=== PATIENT | male | born 1940 | race Caucasian/White ===

== ENCOUNTER 2020-02-27 05:38 | Emergency (ER) | payer OTHER ==
[~2020-02-27] VITALS: Ht 167.6 cm; Wt 104.3 kg
[2020-02-27] MEDS ORDERED: FLOMAX0.4 MG PO (06:11)
[2020-02-27] MEDS ORDERED: LASIX20 MG PO (06:12)
[2020-02-27] MEDS ORDERED: METOPROLOL ER-1 EAC2 PO (06:15)
[2020-02-27] MEDS ORDERED: ALTOPREV40 M2 PO (06:19)
[2020-02-27] MEDS ORDERED: APAP325 MG PO (06:21)
[2020-02-27 07:34] LABS: CALCIUM 8.6 mg/dL (8.5-10.1); CARBON DIOXIDE 22.9 mmol/L (21-32); CHLORIDE SERUM 104 mmol/L (98-107); CREATININE SERUM 0.9 mg/dL (0.7-1.3); GLUCOSE SERUM 99 mg/dL (74-106); POTASSIUM SERUM 3.7 mmol/L (3.5-5.1); SODIUM SERUM 139 mmol/L (136-145)
[2020-02-27 07:37] LABS: BASOPHIL % 0.1 % (0-2); PLATELET COUNT 149 x10^3mcL (130-400)
[2020-02-27 07:38] LABS: ALBUMIN 3.4 g/dL (3.4-5.0); ALKALINE PHOSPHATASE 59 U/L (46-116); ALT/SGPT 19 U/L (16-63); AST/SGOT 22 U/L (15-37); BILIRUBIN TOTAL 1.8 mg/dL (0.20-1.00); TOTAL PROTEIN, SERUM 6.2 g/dL (6.4-8.2)
[2020-02-27 07:39] LABS: RED CELL DISTRIBUTION WIDTH 15.4 % (11.5-14.5)
[2020-02-27 09:13] LABS: UA SPECIFIC GRAVITY 1.025 (1.005-1.035); microscopic required? YES; urine erythrocyte 1+ (NEGATIVE)
[2020-02-27 10:00] VITALS: BP 182/72
== END 2020-02-27 10:00 | disposition home or self-care (01) ==
LOC: ED 05:38
PROVIDERS: Emergency Medicine
DX: S30.22XA Contusion of scrotum and testes, initial encounter (principal); S30.1XXA Contusion of abdominal wall, initial encounter; I11.0 Hypertensive heart disease with heart failure; I50.9 Heart failure, unspecified; Z88.0 Allergy status to penicillin; X58.XXXA Exposure to other specified factors, initial encounter; Y93.89 Activity, other specified; Y92.89 Other specified places as the place of occurrence of the external cause; Y99.8 Other external cause status
CPT/HCPCS: J7030; Q0092